=== PATIENT | male | born 1975 | race Asian ===

== ENCOUNTER 2018-09-30 15:12 | Emergency (ER) | payer OTHER ==
[~2018-09-30] VITALS: Ht 185.4 cm; Wt 113.4 kg
[2018-09-30 15:30] VITALS: BP 146/97
[2018-09-30] MEDS ORDERED: METOCLOPRAMIDE HCL 10 MG/2 ML VIAL IV ONE (16:30)
[2018-09-30] MEDS ORDERED: KETOROLAC TROMETHAMINE INJ 30 MG/ML VIAL IV ONE (16:30)
[2018-09-30] MEDS ORDERED: METOCLOPRAMIDE HCL 10 MG/2 ML VIAL ONE (16:50)
[2018-09-30] MEDS ORDERED: KETOROLAC TROMETHAMINE INJ 30 MG/ML VIAL ONE (16:50)
[2018-09-30] MEDS ORDERED: diphenhydrAMINE HCL 50 MG/ML VIAL ONE (17:16)
[2018-09-30] MEDS ORDERED: diphenhydrAMINE HCL 50 MG/ML VIAL IV ONE (17:30)
== END 2018-09-30 18:09 | disposition home or self-care (01) ==
LOC: ER 15:17
DX: R51 Headache (principal)
CPT/HCPCS: 70450; 96374; 96375; 99284; J1200; J1885; J2765